=== PATIENT | male | born 1995 | race Native Hawaiian/Other Pacific Islander ===

== ENCOUNTER 2018-03-18 10:57 | Emergency (ER) | payer OTHER ==
[~2018-03-18] VITALS: Ht 182.9 cm; Wt 105.0 kg
[~2018-03-18 10:57] MED LIST: HYDR25 PO; PRED20 PO
[2018-03-18 11:04] VITALS: BP 139/87; PULSE 104; RESP 19; TEMP 98.2; O2SAT 100
[2018-03-18] MEDS ORDERED: ACETAMINOPHEN 325 MG TAB PO ONE (11:15)
[2018-03-18 12:22] VITALS: RESP 16
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
== END 2018-03-18 13:55 | disposition home or self-care (01) ==
LOC: NEPD 10:57
DX: S09.90XA Unspecified injury of head, initial encounter (principal); R42 Dizziness and giddiness; J45.909 Unspecified asthma, uncomplicated; V47.0XXA Car driver injured in collision with fixed or stationary object in nontraffic accident, initial encounter
CPT/HCPCS: 70450; 99283